=== PATIENT | male | born 1965 | race Caucasian/White ===

== ENCOUNTER → 2019-01-16 | Day surgery (SDC) | payer MEDICAID, OTHER ==
[~2019-01-16] VITALS: Ht 170.2 cm; Wt 80.0 kg
[~2019-01-16] MED LIST: BUPIVAcaine/PF 2.5 mg/ml (0.25%) 30ml vial ONE; LIDOcaine 2% (20mg/ml) 5ml vial ONE; NO HOME MEDS; ceFAZolin 1000mg inj ONE; ceFAZolin 1GM/D5W- ADD-VANTAGE 50 ML IV ONE; dexamethasone sod phosphate 10mg/ml inj ONE; famotidine 20mg tablet PO ONE; fentaNYL/PF 50MCG/1 ML 2ML syringe IV PRN; fentaNYL/PF 50MCG/1 ML 2ML syringe ONE; hydrALAZINE 20mg/ml inj. IV PRN; labetalol 20mg/4ml (5mg/ml) syringe IV PRN; midazolam 2 mg/2 ml injection ONE; morphine 4 MG/ML inj SYRINge IV PRN; normal saline 1000ml 1,000 ML IV SCH; ondansetron/PF 4mg/2ml inj IV ONE; ondansetron/PF 4mg/2ml inj IV PRN; ondansetron/PF 4mg/2ml inj ONE; propofol inj 20 ML IV ONE; ringers solution, lacted 1,000 ML IV ONE; ringers solution, lacted 1,000 ML IV SCH; sevoflurane 250ml liquid IH ONE
[2019-01-16 15:28] LABS: BASOPHILS # (AUTO) 0.1 X10'3 (0-0.2); BASOPHILS % (AUTO) 0.5 % (0-1); EOSINOPHILS % (AUTO) 0.3 % (0-6); HEMATOCRIT 40.8 % (42.0-52.0); HEMOGLOBIN 13.9 g/dl (14.0-17.9); LYMPHOCYTES # (AUTO) 1.5 X10'3 (1.1-4.8); LYMPHOCYTES % (AUTO) 13.8 % (21-51); MEAN CORPUSCULAR HEMOGLOBIN 32.4 PG (27.0-31.0); MEAN CORPUSCULAR HGB CONC 34.1 g/dL (33.0-36.5); MEAN PLATELET VOLUME 8.3 FL (7.4-10.4); MONOCYTES # (AUTO) 0.6 X10'3 (0-0.9); MONOCYTES % (AUTO) 6.1 % (2-12); NEUTROPHILS # (AUTO) 8.4 X10'3 (1.8-7.7); NEUTROPHILS % (AUTO) 79.3 % (42-75); PLATELET COUNT 212 X10'3 (140-440); RED BLOOD COUNT 4.29 X10'6 (4.70-6.10); WHITE BLOOD COUNT 10.6 X10'3 (4.5-11.0)
[2019-01-16 15:43] LABS: ALANINE AMINOTRANSFERASE 27 U/L (12-78); ALBUMIN 3.5 G/DL (3.4-5.0); ALBUMIN/GLOBULIN RATIO 1.1 (1.1-1.5); ALKALINE PHOSPHATASE 55 IU/L (46-116); ANION GAP 9 (8-16); ASPARTATE AMINO TRANSFERASE 17 U/L (10-37); BILIRUBIN,TOTAL 0.4 MG/DL (0.1-1.0); BLOOD UREA NITROGEN 14 MG/DL (7-18); BUN/CREATININE RATIO 17.1 (5.4-32.0); CALCIUM 8.6 MG/DL (8.5-10.1); CHLORIDE 106 MMOL/L (99-107); CREATININE 0.82 MG/DL (0.60-1.10); GLUCOSE 95 MG/DL (70-104); POTASSIUM 3.9 MMOL/L (3.5-5.1); SODIUM 139 MMOL/L (135-145); TOTAL CARBON DIOXIDE 24.2 MMOL/L (24-32); TOTAL PROTEIN 6.6 G/DL (6.4-8.2); eGFR > 90 ML/MIN
--- NOTE | 2019-01-16 17:12 | NUR ---
or tech at bedside to take pt to ot.pt belonging ,chart and amputed finger with the pt.
[2019-01-16 18:30] VITALS: BP 93/62
--- NOTE | 2019-01-16 18:30 | NUR ---
Received from OR via BED, accompanied by Anesthesiologist DR NORMAN and report given by Anesthesiolgist. PATIENT WAKING UP, DENIES PAIN, V/S WNL, NEUROVASCULAR CHECKS INTACT, SCD ON, LEFT FINGER DRESSING CDI ELEVATED. 20G RUE.
[2019-01-16 18:40] VITALS: BP 95/65
[2019-01-16 18:50] VITALS: BP 104/63
[2019-01-16 19:00] VITALS: BP 106/67
[2019-01-16 19:10] VITALS: BP 111/66
--- NOTE | 2019-01-16 19:10 | NUR ---
PATIENT A&OX4, DENIES PAIN, V/S WNL, NEUROVASCULAR CHECKS INTACT, SCD OFF, FRINGER DRESSING CDI ELEVATED. 20G RUE D/C WITH NO COMPLICATIONS OBSERVED. I HAVE REVIEWED D/C INSTRUCTIONS WITH PATIENT AND FAMILY AND THEY HAVE VERBALIZED UNDERSTANDING. PATIENT D/C HOME WITH FAMILY TO TRANSPORT AND ALL BELONGINGS..
== END | disposition home or self-care (01) ==
LOC: ER 14:39 → PACU OUT 15:29
PROVIDERS: ATTEND Orthopaedic Surgery Hand Surgery
DX: S68.121A Partial traumatic metacarpophalangeal amputation of left index finger, initial encounter (principal); S68.123A Partial traumatic metacarpophalangeal amputation of left middle finger, initial encounter; Z79.899 Other long term (current) drug therapy; Z79.01 Long term (current) use of anticoagulants; W45.8XXA Other foreign body or object entering through skin, initial encounter; Y93.89 Activity, other specified; Y92.098 Other place in other non-institutional residence as the place of occurrence of the external cause; Y99.8 Other external cause status
CPT/HCPCS: 26951; 36415; 71045; 80053; 85025; 85610; 87081; A6222; J0690; J1100; J2001; J2250; J2405; J2704; J3010; J3490; A4618; A6449; A7000; J7120